=== PATIENT | male | born 1975 | race Hispanic/Latino ===

== ENCOUNTER 2024-11-20 12:46 | Emergency (ER) | payer MEDICARE ==
[~2024-11-20] VITALS: Ht 167.6 cm; Wt 55.3 kg
--- NOTE | 2024-11-20 13:54 | EKG ---
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
[2024-11-20 14:34] LABS: BASOPHILS # (AUTO) 0.04 K/uL (0.00-0.20); BASOPHILS % (AUTO) 0.5 % (0.0-5.0); EOSINOPHILS # (AUTO) 0.01 K/uL (0.00-0.70); EOSINOPHILS % (AUTO) 0.1 % (0.0-8.0); HEMATOCRIT 47.1 % (42-54); IMMATURE GRANULOCYTE ABSOLUTE 0.15 K/uL (0-1); LYMPHOCYTES # (AUTO) 1.3 K/uL (1.0-4.8); LYMPHOCYTES % (AUTO) 15.6 % (21.0-51.0); MEAN CORPUSCULAR HEMOGLOBIN 31.1 pg (27.0-33.0); MEAN CORPUSCULAR HGB CONC 33.8 g/dL (32.0-36.0); MONOCYTES # (AUTO) 0.4 K/uL (0.1-1.0); MONOCYTES % (AUTO) 4.1 % (3.0-13.0); NEUTROPHILS # (AUTO) 6.7 K/uL (1.8-7.7); NEUTROPHILS % (AUTO) 77.9 % (40.0-77.0); PLATELET COUNT (AUTO) 221 K/uL (130-400); RED BLOOD CELL COUNT(AUTO) 5.12 MIL/uL (4.50-6.20); RED CELL DISTRIBUTION WIDTH 12.4 % (11.0-15.5); WHITE BLOOD COUNT (AUTO) 8.5 K/uL (4.8-10.8)
--- NOTE | 2024-11-20 15:07 | ERN ---
General Chief Complaint: Abdominal Pain Stated Complaint: VOMITTING,ABDOMINAL PAIN Time Seen by MD: 12:47 Source: patient History of Present Illness Initial Comments PATIENT IS A 49-YEAR-OLD GENTLEMAN COMING IN TO BE EVALUATED FOR NAUSEA AND VOMITING. PATIENT STATES THAT THE SYMPTOMS BEGAN TWO DAYS AGO AND STATES Allergies: Coded Allergies: No Known Allergies (Unverified Allergy, Unknown, 11/20/24) Past Medical History Past Medical History: Diabetes-Type II, Hypertension Past Surgical History: Other Results Laboratory and Microbiology Lab and Micro Result Laboratory Tests Test 11/20/24 14:05 11/20/24 18:08 White Blood Count 8.5 K/uL (4.8-10.8) Red Blood Count 5.12 MIL/uL (4.50-6.20) Hemoglobin 15.9 g/dL (14.0-18.0) Hematocrit 47.1 % (42-54) Mean Corpuscular Volume 92.0 fL (79-99) Mean Corpuscular Hemoglobin 31.1 pg (27.0-33.0) Mean Corpuscular Hemoglobin Concent 33.8 g/dL (32.0-36.0) Red Cell Distribution Width 12.4 % (11.0-15.5) Platelet Count 221 K/uL (130-400) Mean Platelet Volume 10.2 fL (7.5-10.5) Immature Granulocyte % (Auto) 1.8 % (0-1) H Neutrophils (%) (Auto) 77.9 % (40.0-77.0) H Lymphocytes (%) (Auto) 15.6 % (21.0-51.0) L Monocytes (%) (Auto) 4.1 % (3.0-13.0) Eosinophils (%) (Auto) 0.1 % (0.0-8.0) Basophils (%) (Auto) 0.5 % (0.0-5.0) Neutrophils # (Auto) 6.7 K/uL (1.8-7.7) Lymphocytes # (Auto) 1.3 K/uL (1.0-4.8) Monocytes # (Auto) 0.4 K/uL (0.1-1.0) Eosinophils # (Auto) 0.01 K/uL (0.00-0.70) Basophils # (Auto) 0.04 K/uL (0.00-0.20) Absolute Immature Granulocyte (auto 0.15 K/uL (0-1) Nucleated Red Blood Cells 0.0 % (0.0-0.19) Sodium Level 132 mmol/L (136-145) L 133 mmol/L (136-145) L Potassium Level 4.4 mmol/L (3.5-5.1) 3.9 mmol/L (3.5-5.1) Chloride Level 87 mmol/L (101-111) *L 93 mmol/L (101-111) L Carbon Dioxide Level 19 mmol/L (21-32) L 16 mmol/L (21-32) L Blood Urea Nitrogen 23 mg/dL (7-18) H 21 mg/dL (7-18) H Creatinine 1.2 mg/dL (0.5-1.3) 1.1 mg/dL (0.5-1.3) Glomerular Filtration Rate Calc 73 mL/min (>90) 81 mL/min (>90) Random Glucose 223 mg/dL (70-105) H 220 mg/dL (70-105) H Total Calcium 9.8 mg/dL (8.5-10.1) 9.0 mg/dL (8.5-10.1) Total Bilirubin 1.6 mg/dL (0.2-1.0) H Aspartate Amino Transf (AST/SGOT) 26 U/L (10-37) Alanine Aminotransferase (ALT/SGPT) 35 U/L (12-78) Alkaline Phosphatase 98 U/L (50-136) Total Creatine Kinase 28 U/L (21-232) Troponin I High Sensitivity < 4 ng/L (4-75) L Total Protein 9.1 g/dL (6.0-8.3) H Albumin 4.8 g/dL (3.5-5.0) Amylase Level 60 U/L (25-115) Lipase 19 U/L (16-77) Labs Reviewed?: Yes EKG/XRAY/US/CT/MRI CT Scan Comment IMAGING REPORT Signed PATIENT: FELICIANO DAMIAN MR#: [id number] : 1975 SEX: M AGE: 49 LOCATION: [facility] ORDER [id number] STATUS: REG ER REPORT#: [id number] SERVICE [id number] REASON: ABD PAIN ORDERING PHYSICIAN: SHERIF LEBLANC MD PROCEDURE: ABD PEL WO - CT ABDOMEN/PELVIS W/O CONTRAST CT ABDOMEN WITH CONTRAST. CT PELVIS WITH CONTRAST INDICATION: Abdominal pain; No relevant information related to this study was provided in patient's history by the ordering service. TECHNIQUE: Routine transaxial images using 5 mm slice thickness were obtained after the intravenous infusion of 100 mL of Omnipaque 350 without adverse effects. Oral contrast was not administered. Rectal contrast was not administered. Coronal and sagittal reformatted images acquired for interpretation. CT was performed with one or more of the following dose reduction techniques: Automated exposure control, adjustment of the mA and/or kV according to patient size, or use of iterative reconstruction technique. COMPARISON: None FINDINGS: ABDOMEN: Heart size is normal. Visible lung bases are clear. The liver is normal in size and smooth in contour without lesions or biliary duct dilation. The spleen is normal in size without lesions. The gallbladder appears normal. The pancreas appears normal without pancreatic duct dilation. The adrenal glands appear normal. Both kidneys appear unremarkable. Cortical nephrograms are symmetric and normal in appearance bilaterally. No evidence for intra-abdominal free air or organized fluid collection. No retrocrural, intraabdominal, or retroperitoneal lymphadenopathy identified. Trace calcific plaque is noted along the abdominal aortic and iliac vessel yost without aneurysmal dilation. PELVIS: No evidence for free air or organized pelvic fluid collection. No significant pelvic adenopathy detected. Visualized small and large bowel loops appear unremarkable. Terminal ileum appears normal. The appendix appears normal. The urinary bladder appears unremarkable. Visible osseous structures are intact. IMPRESSION: No relevant information related to this study was provided in patient's history by the ordering service. No evidence for any acute intra-abdominal or pelvic process. DICTATED BY: JOHNNIE SCHULTE MD DATE: 11/20/241820 ELECTRONICALLY SIGNED BY: JOHNNIE SCHULTE MD DATE: 11/20/241827 [facility] MDM: DIFFERENTIAL DIAGNOSIS: GASTROENTERITIS, NAUSEA AND VOMITING, MEDICATION SIDE EFFECT, RATIONALE: TESTS CONSIDERED AND ORDERED SECONDARY TO SHARED DECISION MAKING INCLUDE: PREVIOUS OUTSIDE RECORDS REVIEWED: OLD ER VISITS. RISK OF COMPLICATION AND/OR MORBIDITY OR MORTALITY OF PATIENT MANAGEMENT: NONE PATIENT IS A 49-YEAR-OLD GENTLEMAN COMING IN TO BE EVALUATED FOR NAUSEOUSNESS AND VOMITING. PATIENT WAS RECENTLY STARTED ON A NO MEDICATIONS STATES HE HAS BEEN NAUSEOUS SINCE THEN. LABORATORY WORKUP DEHYDRATION AND HYPOCHLOREMIA WHICH IMPROVED SIGNIFICANTLY WITH 2 L OF IV FLUIDS. PATIENT WILL BE DISCHARGED IN STABLE CONDITION STATES HE WAS TOLERATING ORAL INTAKE. CT DID NOT DISCLOSE ACUTE FINDINGS. IT WAS ADVISED HIM DIET MODIFICATION UNTIL SYMPTOMS HAVE 50 SUBSIDED. ALSO ADVISED HIM IF HE NEEDS IMMEDIATE FOLLOW UP WIRES EMERGENT GERARDO LUATION TO FOLLOW UP WITH PCP OR NEAREST ER. ED Course Orders Procedure Category Date Status Time Cbc With Differential LAB 11/20/24 Complete 13:39 Comprehensive LAB 11/20/24 Complete Metabolic Panel 13:39 Amylase LAB 11/20/24 Complete 13:39 Troponin I High LAB 11/20/24 Complete Sensitivity 13:39 Urinalysis Profile LAB 11/20/24 Logged 13:39 12 Lead Ekg Tracing- EKG 11/20/24 Complete Technical 13:39 Lactated Ringers PHA 11/20/24 Complete 1000ml (Lactated 14:00 Ondansetron 4mg Inj PHA 11/20/24 Complete (Zofran 4mg Inj) 14:00 Pantoprazole 40mg Inj PHA 11/20/24 Complete (Protonix 40mg Inj 14:00 Creatine Kinase, Total LAB 11/20/24 Complete 13:39 0.9%Nacl 1000ml (Ns PHA 11/20/24 In Process 1000ml) 17:00 Lipase LAB 11/20/24 Complete 16:40 Basic Metabolic Panel LAB 11/20/24 Complete 17:31 Ct Abdomen/Pelvis W/O CT 11/20/24 Resulted Contrast 17:33 Ondansetron 4mg Inj PHA 11/20/24 In Process (Zofran 4mg Inj) 19:00 Current Medications Medications (Trade) Dose Ordered Sig/Alea Route PRN Reason Start Time Stop Time Status Last Admin Dose Admin Lactated Ringer's 1,000 ml @ 0 mls/hr ONCE ONCE IV 11/20/24 14:00 11/20/24 14:01 DC 11/20/24 16:27 Ondansetron HCl (zoFRAN 4MG INJ) 4 mg ONCE IVP 11/20/24 19:00 11/20/24 23:00 11/20/24 18:49 Ondansetron HCl (zoFRAN 4MG INJ) 4 mg ONCE ONCE IVP 11/20/24 14:00 11/20/24 14:01 DC 11/20/24 16:27 Pantoprazole Sodium (PROTonix 40MG INJ) 40 mg ONCE ONCE IVP 11/20/24 14:00 11/20/24 14:01 DC 11/20/24 16:27 Sodium Chloride 1,000 ml @ 0 mls/hr ONCE IV 11/20/24 17:00 11/20/24 21:00 11/20/24 17:22 Vital Signs Date Time Temp Pulse Resp B/P (MAP) Pulse Ox O2 Delivery O2 Flow Rate FiO2 11/20/24 17:45 97.5 79 18 154/79 99 Room Air* 0 21 11/20/24 16:31 79 18 147/75 98 Room Air* 0 21 11/20/24 12:58 97.5 82 20 109/71 99 Room Air 0 DX & DISP Disposition: Discharge Departure Impression: Primary Impression: Viral gastroenteritis Additional Impressions: Medication side effect, Nausea and vomiting Condition: Stable Scripts Ondansetron (Ondansetron Odt) 4 Mg Tab.rapdis 4 MG PO BID for 3 Days, #6 TAB Prov: SHERIF LEBLANC MD 11/20/24 Additional Instructions: FOLLOW-UP WITH PRIMARY CARE PROVIDER IN 1 TO 2 DAYS. TAKE MEDICATIONS DIRECTED HERE IN THE EMERGENCY ROOM. OKAY TO CONTINUE HOME MEDICATIONS UNLESS OTHERWISE DISCUSSED DURING YOUR VISIT IN THE EMERGENCY ROOM TODAY. RETURN TO Y OUR NEAREST EMERGENCY ROOM IF SYMPTOMS WORSEN OR IF THERE IS NO IMPROVEMENT. CALL 911 IF YOU NEED IMMEDIATE ASSISTANCE. TAKE TYLENOL SZAT-[id number]-TNKLECF NEEDED AND IF NO CONTRAINDICATIONS ARE PRESENT. INCREASE ORAL HYDRATION. A WOUND CULTURE OR URINE CULTURE WAS ORDERED HERE IN THE EMERGENCY ROOM DEPARTMENT PLEASE FOLLOW-UP WITH PRIMARY CARE PROVIDER AND ADVISE THEM TO GET REPEAT PORTS FROM OUR FACILITY. IF YOU HAD ANY SORAYA WRAP/SPLINTS THAT WERE APPLIED HERE, PLEASE DO NOT REMOVE THEM UNTIL YOU SEE YOUR PRIMARY CARE OR SPECIALTY. REFERRALS: Referrals: SOHA LEONARD MD (PCP) Time of Disposition: 18:55 SHERIF LEBLANC MD Nov 20, 2024 15:07
[2024-11-20 15:25] LABS: ALBUMIN 4.8 g/dL (3.5-5.0); BILIRUBIN,TOTAL 1.6 mg/dL (0.2-1.0); CREATININE 1.2 mg/dL (0.5-1.3); POTASSIUM 4.4 mmol/L (3.5-5.1); TOTAL PROTEIN, SERUM 9.1 g/dL (6.0-8.3)
[2024-11-20] MEDS: ondanSETRON 4MG INJ IVP ONE (16:27)
[2024-11-20] MEDS: LACTATED RINGERS 1000ML 1,000 ML IV ONE (16:27)
[2024-11-20] MEDS: PANTOPrazole 40 MG/VIAL IVP ONE (16:27)
--- NOTE | 2024-11-20 16:32 | NUR ---
pt states he was started on semiglutide and noted symptoms shortly after. abdmimal pain, nausea, vomiting and occasional diarrhea
[2024-11-20] MEDS: 0.9%NACL 1000ML 1,000 ML IV SCH (17:22)
[2024-11-20 18:21] LABS: CREATININE 1.1 mg/dL (0.5-1.3); POTASSIUM 3.9 mmol/L (3.5-5.1)
--- NOTE | 2024-11-20 18:28 | HMCIMG ---
CT ABDOMEN WITH CONTRAST. CT PELVIS WITH CONTRAST INDICATION: Abdominal pain; No relevant information related to this study was provided in patient's history by the ordering service. TECHNIQUE: Routine transaxial images using 5 mm slice thickness were obtained after the intravenous infusion of 100 mL of Omnipaque 350 without adverse effects. Oral contrast was not administered. Rectal contrast was not administered. Coronal and sagittal reformatted images acquired for interpretation. CT was performed with one or more of the following dose reduction techniques: Automated exposure control, adjustment of the mA and/or kV according to patient size, or use of iterative reconstruction technique. COMPARISON: None FINDINGS: ABDOMEN: Heart size is normal. Visible lung bases are clear. The liver is normal in size and smooth in contour without lesions or biliary duct dilation. The spleen is normal in size without lesions. The gallbladder appears normal. The pancreas appears normal without pancreatic duct dilation. The adrenal glands appear normal. Both kidneys appear unremarkable. Cortical nephrograms are symmetric and normal in appearance bilaterally. No evidence for intra-abdominal free air or organized fluid collection. No retrocrural, intraabdominal, or retroperitoneal lymphadenopathy identified. Trace calcific plaque is noted along the abdominal aortic and iliac vessel yost without aneurysmal dilation. PELVIS: No evidence for free air or organized pelvic fluid collection. No significant pelvic adenopathy detected. Visualized small and large bowel loops appear unremarkable. Terminal ileum appears normal. The appendix appears normal. The urinary bladder appears unremarkable. Visible osseous structures are intact. IMPRESSION: No relevant information related to this study was provided in patient's history by the ordering service. No evidence for any acute intra-abdominal or pelvic process.
[2024-11-20] MEDS: ondanSETRON 4MG INJ IVP SCH (18:49)
[2024-11-20] MEDS ORDERED: ONDA-243 PO (18:56)
[2024-11-20 19:37] VITALS: BP 154/74; PULSE 79; RESP 18; TEMP 97.5; O2SAT 99
== END 2024-11-20 19:37 | disposition home or self-care (01) ==
LOC: EDH 12:46
DX: A08.4 Viral intestinal infection, unspecified (principal); T50.905A Adverse effect of unspecified drugs, medicaments and biological substances, initial encounter; E11.9 Type 2 diabetes mellitus without complications; I10 Essential (primary) hypertension; Z98.890 Other specified postprocedural states; Y92.89 Other specified places as the place of occurrence of the external cause
CPT/HCPCS: 99285; 74176; 96374; 96361; 96375; 82150; 82550; 84484; 80053; 83690; 85025; 36415; 96376; 93005; 80048; J7120; J7030; J2405; J2470